=== PATIENT | female | born 1975 | race Caucasian/White ===

== ENCOUNTER 2018-11-21 05:51 | Observation (INO) | payer OTHER ==
[2018-11-21] MEDS ORDERED: NEOSTIGMINE 3 MG/3 ML SYRINGE (07:00)
[2018-11-21] MEDS ORDERED: GLYCOPYRROLATE 0.4 MG INJ (07:00)
[2018-11-21] MEDS ORDERED: CEFAZOLIN 1 GM INJ (07:00)
[2018-11-21] MEDS ORDERED: PROPOFOL 20 ML ×2 (07:34→08:11)
[2018-11-21] MEDS ORDERED: LIDOCAINE 2% (SDV) 5 ML INJ (07:34)
[2018-11-21] MEDS ORDERED: MIDAZOLAM 1 MG/ML 2 ML INJ (07:35)
[2018-11-21] MEDS: BUPIVACAINE 0.25%/EPI (SDV) 30 ML INJ (07:39)
[2018-11-21] MEDS: GENTAMICIN 80 MG INJ (07:40)
[2018-11-21] MEDS: POLYMYXIN/BACITRACIN 1L IRRIG (07:40)
[2018-11-21] MEDS ORDERED: FAMOTIDINE 20 MG INJ (08:09)
[2018-11-21] MEDS ORDERED: DEXAMETHASONE 4 MG/ML 5 ML INJ (08:09)
[2018-11-21] MEDS ORDERED: ONDANSETRON 4 MG INJ (08:09)
[2018-11-21] MEDS ORDERED: EPHEDrine 25 MG/5 ML SYG (08:25)
[2018-11-21] MEDS ORDERED: HYDROmorphONE 2 MG/ML SYG (09:22)
[2018-11-21] MEDS: SODIUM CL BACTERIOSTATIC 30 ML INJ (09:31)
[2018-11-21] MEDS: ISOSULFAN BLUE 1% 5 ML INJ SC (09:37)
[2018-11-21] MEDS ORDERED: ROCURONIUM 50 MG INJ (11:00)
[2018-11-21] MEDS ORDERED: HYDROmorphONE 1 MG/5 ML IV SYRINGE IV (11:30)
[2018-11-21] MEDS ORDERED: FENTAnyl 50 MCG/ML VIAL IV (11:30)
[2018-11-21] MEDS ORDERED: MEPERIDINE 25 MG INJ IV (11:30)
[2018-11-21] MEDS ORDERED: PROCHLORPERAZINE 10 MG INJ IV (11:30)
[2018-11-21] MEDS ORDERED: ONDANSETRON 4 MG INJ IV (11:30)
[2018-11-21] MEDS ORDERED: DIPHENHYDRAMINE 50 MG INJ IV (11:30)
[2018-11-21] MEDS ORDERED: OXYCODONE/ACETAMINOPHEN (5/325) TAB PO (11:30)
[2018-11-21] MEDS: BUPIVACAINE LIPOSOME/PF 266 MG/20 ML VIAL INFIL (11:34)
[2018-11-21] MEDS ORDERED: LABETALOL HCL 20MG INJ IV (12:30)
[2018-11-21] MEDS: FENTAnyl 50 MCG/ML VIAL IV ×2 (12:32→13:19)
[2018-11-21] MEDS: HYDROmorphONE 1 MG/5 ML IV SYRINGE IV ×2 (12:33→13:20)
[2018-11-21] MEDS: hydrALAzine 20 MG INJ IV (12:35)
[2018-11-21] MEDS: LACTATED RINGER'S 1,000 ML IV ×2 (14:09→17:39)
[2018-11-21] MEDS: HYDROCODONE/APAP (5/325) TAB PO ×2 (15:24→20:05)
[2018-11-21] MEDS: ONDANSETRON 4 MG INJ IV (18:16)
[2018-11-21] MEDS: HYDROmorphONE 0.5 MG/0.5 ML SYG IV ×2 (18:16→22:17)
[2018-11-22] MEDS: HYDROCODONE/APAP (5/325) TAB PO ×3 (00:14→10:55)
[2018-11-22] MEDS: LACTATED RINGER'S 1,000 ML IV (00:14)
[2018-11-22] MEDS: ONDANSETRON 4 MG INJ IV ×2 (00:18→06:47)
[2018-11-22] MEDS: HYDROmorphONE 0.5 MG/0.5 ML SYG IV ×2 (02:14→07:48)
== END 2018-11-22 13:53 | disposition home or self-care (01) ==
LOC: SDS 05:51 → REC 07:39 → MS1 13:32
DX: D05.11 Intraductal carcinoma in situ of right breast (principal); Z17.0 Estrogen receptor positive status [ER+]; D24.1 Benign neoplasm of right breast; N60.91 Unspecified benign mammary dysplasia of right breast; D24.2 Benign neoplasm of left breast; N60.12 Diffuse cystic mastopathy of left breast; N60.92 Unspecified benign mammary dysplasia of left breast; E66.3 Overweight; Z68.27 Body mass index [BMI] 27.0-27.9, adult
CPT/HCPCS: 19303; 88307; 88331